=== PATIENT | male | born 1985 | race Caucasian/White ===

== ENCOUNTER 2024-06-28 13:54 | Emergency (ER) | payer MEDICAID ==
[~2024-06-28] VITALS: Ht 180.3 cm; Wt 95.5 kg
[2024-06-28 14:05] VITALS: BP 126/63; PULSE 72; RESP 18; TEMP 98.4; O2SAT 99
[2024-06-28] MEDS ORDERED: BUPR1FIL19 SL (14:08)
[2024-06-28] MEDS ORDERED: LEVE750T10 PO ×2 (14:08→14:18)
== END 2024-06-28 15:03 | disposition home or self-care (01) ==
LOC: EMS 13:57
DX: G40.909 Epilepsy, unspecified, not intractable, without status epilepticus (principal); Z88.0 Allergy status to penicillin
CPT/HCPCS: 99283; Z7502

== ENCOUNTER 2024-07-08 12:11 | Emergency (ER) | payer MEDICAID ==
[~2024-07-08] VITALS: Ht 180.3 cm; Wt 90.9 kg
[~2024-07-08 12:11] MED LIST: BUPR1FIL19 SL; LEVE750T10 PO
[2024-07-08 12:15] VITALS: TEMP 97.8
[2024-07-08] MEDS ORDERED: LEVE-71 PO (12:15)
[2024-07-08] MEDS ORDERED: GABA-1181 PO (12:15)
[2024-07-08] MEDS ORDERED: SODIUM CHLORIDE 0.9% 100 ML ONE (12:54)
[2024-07-08] MEDS ORDERED: IOHEXOL 350 MG/ML 100 ML VIAL ONE (12:54)
[2024-07-08 13:03] LABS: BASOPHILS % (AUTO) 0.5 % (0.0-2.0); EOSINOPHILS % (AUTO) 3.6 % (1.0-6.0); HEMATOCRIT 40.1 % (41-53); HEMOGLOBIN 12.9 g/dL (13.5-17.5); LYMPHOCYTES # (AUTO) 1.4 K/uL (1.0-4.8); LYMPHOCYTES % (AUTO) 24.4 % (22.0-44.0); MEAN CORPUSCULAR HEMOGLOBIN 26.1 pg (26.0-34.0); MEAN CORPUSCULAR HGB CONC 32.3 G/dL (31.0-37.0); MEAN CORPUSCULAR VOLUME 81 fL (80-100); MONOCYTES # (AUTO) 0.5 K/uL (0.1-1.0); MONOCYTES % (AUTO) 8.9 % (2.0-9.0); NEUTROPHILS # (AUTO) 3.6 K/uL (1.8-7.7); NEUTROPHILS % (AUTO) 62.6 % (40.0-70.0); PLATELET COUNT (AUTO) 199 K/uL (150-450); RED BLOOD CELL COUNT(AUTO) 4.96 MIL/uL (4.50-5.90); RED CELL DISTRIBUTION WIDTH 14.1 % (11.5-14.5); WHITE BLOOD COUNT (AUTO) 5.8 K/uL (4.5-11.0)
[2024-07-08] MEDS: ACETAMINOPHEN 500 MG TABLET PO ONE (13:08)
[2024-07-08 13:18] LABS: ANION GAP 6 mmol/L (8-16); CALCIUM, TOTAL 8.2 mg/dL (8.8-10.5); CARBON DIOXIDE 29 mmol/L (22-29); CHLORIDE 105 mmol/L (98-107); CREATININE 0.71 mg/dL (0.60-1.30); GLOMERULAR FILTR. RATE CALC > 60 mL/min (>60); GLUCOSE,RANDOM 105 mg/dL (70-110); POTASSIUM 4.2 mmol/L (3.5-5.1); SODIUM SERUM 140 mmol/L (136-145); UREA NITROGEN, BLOOD 10 mg/dL (7-18)
[2024-07-08 13:26] LABS: ALANINE AMINOTRANSFERASE 26 U/L (12-78); ALBUMIN 3.3 g/dL (3.4-5.0); ALKALINE PHOSPHATASE 79 U/L (46-116); ASPARTATE AMINOTRANSFERASE 15 U/L (15-37); BILIRUBIN,TOTAL 0.4 mg/dL (0.1-1.0); LIPASE 29 U/L (16-77); TOTAL PROTEIN, SERUM 6.4 g/dL (6.4-8.2)
[2024-07-08 13:31] LABS: PROTHROMBIN TIME 11.1 SEC (9.4-11.6)
[2024-07-08] MEDS ORDERED: LORazepam 2 MG/ML VIAL ONE (14:04)
[2024-07-08] MEDS: LORazepam 2 MG/ML VIAL IVP ONE (14:11)
[2024-07-08] MEDS: LevETIRAcetam 1,000 MG in DEXTROSE 5%-WATER 100 ML IV ONE (14:30)
[2024-07-08] MEDS: DOCUSATE SODIUM 100 MG CAPSULE PO ONE (14:57)
[2024-07-08] MEDS ORDERED: DOCU-385 PO (16:44)
[2024-07-08] MEDS ORDERED: NA P133E4 PR (16:44)
[2024-07-08 16:45] VITALS: BP 118/63; PULSE 69; RESP 14; O2SAT 97
== END 2024-07-08 17:00 | disposition home or self-care (01) ==
LOC: EMS 12:11
DX: K59.00 Constipation, unspecified (principal); F17.210 Nicotine dependence, cigarettes, uncomplicated; Z88.0 Allergy status to penicillin
CPT/HCPCS: 99285; 74177; 96365; 96375; 80048; 80076; 83690; 85025; 85610; 85730; 36415; J0712; Q9967; J2060; J7060; J7050